=== PATIENT | female | born 1985 | race Caucasian/White ===

== ENCOUNTER 2016-12-30 01:04 | Emergency (ER) | payer OTHER ==
--- NOTE | 2016-12-30 07:23 | ED CLINICAL REPORT ---
Clinical Report - Physicians/Mid Levels [facility] [address] [place] [address] 12/30/2016 1:07 Patient: STAR HIDALGO Time Seen: 01:Dec 30 2016. Arrived- By private vehicle. Historian- patient. CPT: ER phys charges level 4 plus (#[id number]). EKG interpretation (#[id number]). HISTORY OF PRESENT ILLNESS Chief Complaint: PALPITATIONS. This started today Was reading about complications after breast surgery, fell asleep and then awoke later with some anxiety. and is still present. Onset during rest. It is described as a pounding heart beat. Modifying factors. Not worsened by anything. Not relieved by anything. No chest pain, fainting episodes or dizziness. She has had chest soreness (post-op). ( Breast augmentation 2 days ago.). Treatment DIETITIAN HELPER: (none). Similar symptoms previously: As bad. Diagnosis: panic attack. Recent medical care: Not recently seen/assessed. REVIEW OF SYSTEMS No fever, chills, cough, orthopnea or calf pain. No enlarged lymph nodes, sore throat, blurred vision, nausea or abdominal pain. No black stools, difficulty with urination, skin rash, depression or vomiting. No diarrhea or bloody stools. All systems otherwise negative, except as recorded above. PAST HISTORY Uses an intrauterine device. Asthma. Medications: Ibuprofen Oral. Co Q-10 Oral. Stool Softener Oral. Arnica [place] Oral. Aleve Oral. Percocet Oral. Allergies: No Known Drug Allergy. SOCIAL HISTORY Never smoker. No alcohol use or drug use. ADDITIONAL NOTES The nursing notes have been reviewed. PHYSICAL EXAM Vital Signs: 12/30/2016 01:12 BP: 112/72. HR: 150. RR: 20. O2 saturation: 100%. Temp: 98 F. Pain level now: 0/10. Appearance: Alert. No acute distress. Anxious. Eyes: Eyes normal inspection. ENT: Pharynx normal. Neck: Normal inspection. CVS: Normal heart rate and rhythm. Heart sounds normal. Pulses normal. Not tachycardic. Respiratory: No respiratory distress. Breath sounds normal. Chest nontender. Abdomen: Soft and nontender. Back: Normal external inspection. Skin: Skin warm. Normal skin color. No rash. Extremities: Extremities exhibit normal ROM. No lower extremity edema. Neuro: Oriented X 3. No motor deficit. No sensory deficit. LABS, X-RAYS, AND EKG EKG: Rate: 162. Narrow-complex tachycardia. Normal QRS complex. Normal axis. Non-specific ST segment / T wave abnormalities. Prior EKG unavailable. The study has been interpreted contemporaneously. The study has been independently viewed by me. The EKG appears to be a good tracing. Laboratory Tests: CBC w Diff: (HARRY: 12/30/2016 01:20) ( MsgRcvd 12/30/2016 01:50) Final results Test Result Flag Units (Reference) WHITE BLOOD COUNT 7.7 K/uL (4.5-11.5) RED BLOOD COUNT 3.78 L M/uL (4.00-5.20) HEMOGLOBIN 11.6 L gm/dL (12.0-16.0) HEMATOCRIT 34.0 L % (36.0-46.0) MEAN CELL VOLUME 90 fL (80-100) MEAN CORPUSCULAR HGB 31 pg (26-34) MEAN CORPUSCULAR HGB CONC 34 g/dL (31-37) RED CELL DISTRIBUTION WIDTH 12.1 % (11.6-14.8) PLATELET COUNT 250 K/uL (150-400) NEUTROPHIL % 48.1 L % (50-75) LYMPH % 39.3 % (25-40) MONO % 9.0 % (3-14) EOSINOPHIL % 3.3 % (0-4) BASOPHIL % 0.3 % (0-2) CMP: (HARRY: 12/30/2016 01:20) ( MsgRcvd 12/30/2016 02:02) Final results Test Result Flag Units (Reference) GLUCOSE 113 H mg/dL (70-110) BUN 9 mg/dL (7-18) CREATININE 0.7 mg/dL (0.6-1.3) Estimated GFR >60 mL/min Estimated GFR- >60 mL/min Note: Persistent reduction over 3 months in eGFR<60 mL/min/1.73 m2 defines CKD. Patients with eGFR values>=60 mL/min/1.73 m2 may also have CKD if evidence ofpersistent proteinuria. Additional information may be foundat www.kidney.org. SODIUM 141 mmol/L (136-145) POTASSIUM 3.0 L mmol/L (3.5-5.1) CHLORIDE 105 mmol/L (98-107) CARBON DIOXIDE 26 mmol/L (21-32) CALCIUM 8.7 mg/dL (8.5-10.1) TOTAL PROTEIN 7.5 g/dL (6.4-8.2) ALBUMIN 4.0 g/dL (3.3-5.0) BILIRUBIN, TOTAL 0.5 mg/dL (0.0-1.0) ALKALINE PHOSPHATASE 90 U/L (46-116) AST (SGOT) 29 U/L (15-37) ALT (SGPT) 53 U/L (12-78) . PROGRESS AND PROCEDURES Course of Care: Pt resting as I walked into the room and noted HR of 172. Narrow complex tachycardia. Pt does not have palpitations at the time. NO other symptoms. Pt having paroxysmal runs of tachycardia. 07:23 /. No more spells of tachycardia. Repeat exam shows no rub or murmur. Pt calm and in no distress. Will start metoprolol and have PCP follow up this week. Patient/family counseled. Disposition: Discharged. Condition: stable and improved. CLINICAL IMPRESSION Anxiety reaction. Narrow complex tachycardia post -op status. INSTRUCTIONS No strenuous activity. Avoid stimulants (such as cigarettes, coffee, cold medicines, sinus medicines, street drugs). Warnings: Further evaluation is necessary. GENERAL WARNINGS: Return or contact your physician immediately if your condition worsens or changes unexpectedly, if not improving as expected, or if other problems arise. Your Current Medications: STOP TAKING THE FOLLOWING MEDICATIONS: Arnica [place] Oral. CONTINUE TAKING THE FOLLOWING MEDICATIONS: Aleve Oral. Co Q-10 Oral. Ibuprofen Oral. Percocet Oral. Stool Softener Oral. Prescription Medications: Metoprolol 50 mg: take 1 orally every day. Dispense fifteen (15). No refills. Follow-up: Follow up with your doctor in five days. Call for an appointment. Understanding of the discharge instructions verbalized by patient. (Electronically signed by Johnny Garcia MD 01/02/2017 22:14)
--- NOTE | 2016-12-30 07:23 | ED ORDER SUMMARY ---
..... Patient: STAR HIDALGO OrderSheet [facility] VisitID: [id number] [place] [address] 31y, F Registration Date/Time: 12/30/2016 ORDER SHEET Weight: 58.9 kg (stated) Allergies: No Known Drug Allergy GENERAL ORDERS: CBC w Diff Urgent (:12/30/2016 César PULIDO) (1:31 HSoule) CMP Urgent (:12/30/2016 César PULIDO) (1:31 HSoule) Tier Lift Truck Operator (Continuous) (:12/30/2016 César PULIDO) (1:31 HSoule) Pulse oximeter (:12/30/2016 César PULIDO) (1:31 HSoule) EKG - ER Stat (:12/30/2016 César PULIDO) (1:31 HSoule) TSH Urgent (04:12/30/2016 César PULIDO) (4:12 AMcQuoid ER Tech1) CRP Urgent (04:12/30/2016 César PULIDO) (4:12 AMcQuoid ER Tech1) UA-Culture if indicated Urgent (04:51 12/30/2016 César PULIDO) (5:17 AMcQuoid ER Tech1) Urine Drug Screen Urgent (04:12/30/2016 César PULIDO) (5:17 AMcQuoid ER Tech1) MEDICATION ORDERS: KCl PO 20 meq (NOW) (04:20 12/30/2016 César PULIDO) (Ack 4:31 HSoule) (4:38 HSoule) Metoprolol PO 50 mg (NOW) (05:25 12/30/2016 César PULIDO) (Ack 5:33 HSoule) (5:41 HSoule) IV FLUIDS: Ativan IV 0.5 mg (NOW) (:12/30/2016 César PULIDO) (Ack 1:31 HSoule) (1:42 HSoule) IV Saline Lock (:12/30/2016 César PULIDO) (1:42 HSoule) IV NS : initial bolus 1000 mL (1000 mL/hr), then none - for X1 (NOW); Routine (01:55 12/30/2016 César PULIDO) (2:00 HSoule) Ativan IV 0.5 mg (NOW) (01:56 12/30/2016 César PULIDO) (2:01 HSoule) Metoprolol IV 2.5 mg (NOW) (03:48 12/30/2016 César PULIDO) (Ack 3:51 HSoule) (3:59 HSoule) ORDER SHEET NOTES: [Electronically signed by Dianne Leyva R.N. (08:06 12/30/2016)] [Electronically signed by Johnny Garcia MD (22:14 01/02/2017)] [Electronically locked/signed by Dianne Leyva R.N. (08:06 12/30/2016)]
--- NOTE | 2016-12-30 07:23 | ED NURSING NOTES ---
Clinical Report - Nurses [facility] [address] [place] [address] 12/30/2016 1:07 Patient: STAR HIDALGO TRIAGE Triage time 01:Dec 30 2016. Acuity: LEVEL 3. Chief Complaint: (SOB, Rapid heart rate). SEPSIS SCREEN: Sepsis Screen: negative. Negative (no infection suspected/documented). Heart rate greater than 90. MEGHAN COMA SCORE: [place] Coma Scale: 15- eyes open spontaneously (4); best verbal response- oriented x 4 (5); best motor response- obeys commands (6). --01:21 Starla Cole 01:12 12/30/16. BP: 112/72. HR: 150. RR: 20. O2 saturation: 100% on room air. Temp: 98 F (oral). Pain level now: 0/10. --01:21 Starla Cole. Weight: 58.9 kg stated. Height/Length: 63 inches Per Patient. BMI: 23. --01:16 Starla Cole. Medications Percocet Oral. --01:18 Starla Cole Aleve Oral. --01:18 Maddie Coleh Arnica [place] Oral. --01:18 Starla Cole Stool Softener Oral. --01:18 Starla Cole Co Q-10 Oral. --01:18 Starla Cole Ibuprofen Oral. --01:18 DouglasSreekanthStarla. Allergies No Known Drug Allergy. --01:19 Starla Cole. History Arrived by private vehicle. Historian: patient. Accompanied by family. Primary physician (jose miguel louis). This started just prior to arrival. ( Patient has surgery on her breasts on . She states she woke from sleep tonight with shortness of breath, rapid heart rate, and felt abnormal. Patient denies any drainage from incision. Patient denies history of blood clot but states her mother and other family members have had blood clots. She reports history of anxiety. She reports history of anxiety.). PAST MEDICAL HX: Immunizations: up-to-date. Uses an intrauterine device. SOCIAL HX: Never smoker. No alcohol use or drug use. No infectious disease exposure. ABUSE ASSESSMENT: No report of abuse. FALL RISK ASSESSMENT: Fall risk assessment completed. No fall risk identified. NUTRITIONAL RISK ASSESSMENT: The nutritional risk assessment revealed no deficiencies. FUNCTIONAL ASSESSMENT: Functional assessment: no impairments noted. LEARNING NEEDS ASSESSMENT: The learning needs assessment revealed no barriers. SKIN INTEGRITY ASSESSMENT: Skin integrity risk assessment completed. No skin integrity risk identified. --: Starla Cole. PROBLEMS: Asthma. --: Starla Cole. ADDITIONAL SURGERIES: Breast Augmentation. --: Starla Cole. Interventions ID band on patient. To treatment room. --: Starla Cole. PHYSICAL ASSESSMENT Ambulatory to room. Patient gowned. GENERAL / NEURO / PSYCH: Alert. Oriented X 4. Appears anxious. HEENT: No facial asymmetry noted. Mucous membranes are pink. RESPIRATORY: Respirations not labored. Breath sounds within normal limits. CVS: Cardiac rhythm: sinus tachycardia; (160). GI / : Abdomen soft and nontender. SKIN: Skin is warm and dry. Normal skin turgor. --: Starla Cole. NURSING PROGRESS NOTES :12/30/16. application packaging consultant, pulse oximeter and NIBP monitor placed on patient; monitor alarms on. Patient gowned. Warming measures: blanket applied. Reassurance given to the patient. Two patient identifiers checked. Call light placed in reach. Side rails up x 1. Bed placed in lowest position. Brakes of bed on. Patient ready for evaluation- chart flagged and ED physician notified. --: Starla Cole 01:12/30/2016 Site #1 started via IV in the left antecubital space with an 20g angiocath; one attempt. Blood drawn: rainbow set. Labeled in the presence of the patient and sent to the lab. Saline lock flushed with 10 mL saline. --: Starla Cole Checked patient name and birthdate: patient confirmed. Blood samples drawn from the left antecubital space peripheral IV site with Vacutainer by nurse ; labeled in presence of the patient and sent to lab: rainbow set. Additional blood sent to lab. Line flushed with 10 mL normal saline post blood draw. --01:23 Starla Cole EKG time: (Dec 30 2016). EKG was performed by a nurse and shown to the ED physician. --01:23 Starla Cole ( Provider notified of vitals and called to bedside). --01:24 Starla Cole 01:42 12/30/2016 Ativan (LORazepam) IVP 0.5 mg given over 1 minute(s) via site #1. Allergies verified, confirmed 5 rights and sedative warning given to the patient. IV patency established. IV site checked: no pain, redness, or swelling. IV flushed thoroughly pre- and post-medication administration. IVP given by RN. --01:42 Starla Cole 01:48 12/30/16. HR: 118. RR: 20. O2 saturation: 100% on room air. --01:51 Starla Cole 01:45 12/30/2016 Started bag #1 1000 mL IV Fluids IV NS (Saline); at 1000 mL/hr over 1 hour(s) via site #1. Allergies verified and confirmed 5 rights. IV patency established. IV site checked: no pain, redness, or swelling. IV flushed thoroughly pre- and post-medication administration. --02:00 Starla Cole 02:01 12/30/2016 Ativan (LORazepam) IVP 0.5 mg given over 1 minute(s) via site #1. Allergies verified, confirmed 5 rights and sedative warning given to the patient. IV patency established. IV site checked: no pain, redness, or swelling. IV flushed thoroughly pre- and post-medication administration. IVP given by RN. --02: Starla Cole Patient ID band checked for patient name and birthdate: patient confirmed. Instructions provided to collect clean catch urine and patient verbalized understanding. Clean catch urine collected with return of yellow-colored clear urine; sample sent to lab for urinalysis and drug screen. Specimen labeled in the presence of the patient. ( Patient assisted up to restroom. Patient anxious. She reports she feels weird still.). --02:02 Starla Cole 02:09 12/30/16. BP: 125/84. HR: 118. RR: 20. O2 saturation: 100% on room air. --02:09 Starla Cloe ( patient assisted up to restroom). --02:33 Starla Cole ( lights dimmed, warm blankets applied. Patient has no complaints at this time). --02:39 Starla Cole 03:12 12/30/16. HR: 115. RR: 20. O2 saturation: 98%. --03:12 Starla Cole The patient reports no complaints and she is calm and resting quietly. --03:13 Starla Cole 02:40 12/30/2016 IV Fluids IV NS Discontinued: bag #1 completed. Total amount infused: 1000 mL. IV patency established. IV site checked: no pain, redness, or swelling. IV flushed thoroughly. --03:59 Starla Cole 03:50 12/30/16. --04:00 Starla Cole 03:54 12/30/2016 Metoprolol (Metoprolol Tartrate) IVP 2.5 mg given over 4 minute(s) via site #1. Allergies verified and confirmed 5 rights. IV patency established. IV site checked: no pain, redness, or swelling. IV flushed thoroughly pre- and post-medication administration. IVP given by RN. --03:59 Starla Cole 03:50 12/30/16. BP: 120/78. HR: 125. RR: 20. O2 saturation: 98% on room air. --04:00 Starla Cole 04:00 12/30/16. BP: 122/70. HR: 105. RR: 20. O2 saturation: 98% on room air. Additional comments: Vitals signs after medication administration. . --04:01 Starla Cole 04:38 12/30/2016 KCL (Potassium Chloride ER) PO Tablets 20 meq given. Allergies verified and confirmed 5 rights. --04:38 Starla Cole 04:39 12/30/16. BP: 124/70. HR: 112. RR: 20. O2 saturation: 100% on room air. --04:40 Starla Cole ( Patient given PO food and fluids. Patient resting quietly and has no complaints.). --04:40 Starla Cole 05:41 12/30/2016 Metoprolol PO Tablets 50 mg given. Allergies verified and confirmed 5 rights. --05:41 Starla Cole 05:42 12/30/16. BP: 115/60. HR: 108. RR: 20. O2 saturation: 100% on room air. Pain level now: 0/10. --05:42 Starla Cole 06:07 12/30/16. BP: 125/60. HR: 111. RR: 20. O2 saturation: 100% on room air. --06:07 Starla Cole Care transferred and report given (Leidy SINGH). --07:20 Starla Cole 07:48 12/30/16. BP: 106/68. HR: 88. RR: 18. O2 saturation: 100%. Temp: 97.2 F. --07:49 Steffany Caballero. DISPOSITION / DISCHARGE 08:12/30/2016 Site #1 removed upon discharge. Catheter intact. Manual pressure and bandaid applied. --08:05 Dianne Leyva R.N. 08:04 12/30/16. BP: 106/68. HR: 94. RR: 16. O2 saturation: 100%. Temp: 98.0 F. Pain level now 0/10. --08:05 Dianne Leyva R.N. Condition at departure: stable. No learning barriers present. Discharge instructions provided and reviewed with the patient. Reviewed medication(s) side effects, precautions, dosing and course information. Prescription(s) given to the patient. Reviewed referral to family practice for followup. Patient verbalized understanding. Written instructions provided in [place]. The patient was discharged home and accompanied by knowledge architect. She left the Emergency Department ambulatory and via private vehicle. Rock Splitter driving. Medication list reviewed and validated. --08:06 Dianne Leyva R.N. Departure time: 08:06. --08:06 Dianne Leyva R.N. Locked/Released at 12/30/2016 8:06 by Dianne Leyva R.N.
--- NOTE | 2016-12-30 07:23 | ED ORDER SUMMARY ---
..... Patient: STAR HIDALGO OrderSheet [facility] VisitID: [id number] [place] [address] 31y, F Registration Date/Time: 12/30/2016 ORDER SHEET Weight: 58.9 kg (stated) Allergies: No Known Drug Allergy GENERAL ORDERS: CBC w Diff Urgent (:12/30/2016 César PULIDO) (1:31 HSoule) CMP Urgent (:12/30/2016 César PULIDO) (1:31 HSoule) Filer Repairer (Continuous) (:12/30/2016 César PULIDO) (1:31 HSoule) Pulse oximeter (:12/30/2016 César PULIDO) (1:31 HSoule) EKG - ER Stat (:12/30/2016 César PULIDO) (1:31 HSoule) TSH Urgent (04:12/30/2016 César PULIDO) (4:12 AMcQuoid ER Tech1) CRP Urgent (04:12/30/2016 César PULIDO) (4:12 AMcQuoid ER Tech1) UA-Culture if indicated Urgent (04:51 12/30/2016 César PULIDO) (5:17 AMcQuoid ER Tech1) Urine Drug Screen Urgent (04:12/30/2016 César PULIDO) (5:17 AMcQuoid ER Tech1) MEDICATION ORDERS: KCl PO 20 meq (NOW) (04:20 12/30/2016 César PULIDO) (Ack 4:31 HSoule) (4:38 HSoule) Metoprolol PO 50 mg (NOW) (05:25 12/30/2016 César PULIDO) (Ack 5:33 HSoule) (5:41 HSoule) IV FLUIDS: Ativan IV 0.5 mg (NOW) (:12/30/2016 César PULIDO) (Ack 1:31 HSoule) (1:42 HSoule) IV Saline Lock (:12/30/2016 César PULIDO) (1:42 HSoule) IV NS : initial bolus 1000 mL (1000 mL/hr), then none - for X1 (NOW); Routine (01:55 12/30/2016 César PULIDO) (2:00 HSoule) Ativan IV 0.5 mg (NOW) (01:56 12/30/2016 César PULIDO) (2:01 HSoule) Metoprolol IV 2.5 mg (NOW) (03:48 12/30/2016 César PULIDO) (Ack 3:51 HSoule) (3:59 HSoule) ORDER SHEET NOTES: [Electronically signed by Dianne Leyva R.N. (08:06 12/30/2016)] [Electronically signed by Johnny Garcia MD (22:14 01/02/2017)] [Electronically locked/signed by Dianne Leyva R.N. (08:06 12/30/2016)]
--- NOTE | 2016-12-30 07:23 | ED CLINICAL REPORT ---
Clinical Report - Physicians/Mid Levels [facility] [address] [place] [address] 12/30/2016 1:07 Patient: STAR HIDALGO Time Seen: 01:Dec 30 2016. Arrived- By private vehicle. Historian- patient. CPT: ER phys charges level 4 plus (#[id number]). EKG interpretation (#[id number]). HISTORY OF PRESENT ILLNESS Chief Complaint: PALPITATIONS. This started today Was reading about complications after breast surgery, fell asleep and then awoke later with some anxiety. and is still present. Onset during rest. It is described as a pounding heart beat. Modifying factors. Not worsened by anything. Not relieved by anything. No chest pain, fainting episodes or dizziness. She has had chest soreness (post-op). ( Breast augmentation 2 days ago.). Treatment CARRIAGE FEEDER: (none). Similar symptoms previously: As bad. Diagnosis: panic attack. Recent medical care: Not recently seen/assessed. REVIEW OF SYSTEMS No fever, chills, cough, orthopnea or calf pain. No enlarged lymph nodes, sore throat, blurred vision, nausea or abdominal pain. No black stools, difficulty with urination, skin rash, depression or vomiting. No diarrhea or bloody stools. All systems otherwise negative, except as recorded above. PAST HISTORY Uses an intrauterine device. Asthma. Medications: Ibuprofen Oral. Co Q-10 Oral. Stool Softener Oral. Arnica [place] Oral. Aleve Oral. Percocet Oral. Allergies: No Known Drug Allergy. SOCIAL HISTORY Never smoker. No alcohol use or drug use. ADDITIONAL NOTES The nursing notes have been reviewed. PHYSICAL EXAM Vital Signs: 12/30/2016 01:12 BP: 112/72. HR: 150. RR: 20. O2 saturation: 100%. Temp: 98 F. Pain level now: 0/10. Appearance: Alert. No acute distress. Anxious. Eyes: Eyes normal inspection. ENT: Pharynx normal. Neck: Normal inspection. CVS: Normal heart rate and rhythm. Heart sounds normal. Pulses normal. Not tachycardic. Respiratory: No respiratory distress. Breath sounds normal. Chest nontender. Abdomen: Soft and nontender. Back: Normal external inspection. Skin: Skin warm. Normal skin color. No rash. Extremities: Extremities exhibit normal ROM. No lower extremity edema. Neuro: Oriented X 3. No motor deficit. No sensory deficit. LABS, X-RAYS, AND EKG EKG: Rate: 162. Narrow-complex tachycardia. Normal QRS complex. Normal axis. Non-specific ST segment / T wave abnormalities. Prior EKG unavailable. The study has been interpreted contemporaneously. The study has been independently viewed by me. The EKG appears to be a good tracing. Laboratory Tests: CBC w Diff: (HARRY: 12/30/2016 01:20) ( MsgRcvd 12/30/2016 01:50) Final results Test Result Flag Units (Reference) WHITE BLOOD COUNT 7.7 K/uL (4.5-11.5) RED BLOOD COUNT 3.78 L M/uL (4.00-5.20) HEMOGLOBIN 11.6 L gm/dL (12.0-16.0) HEMATOCRIT 34.0 L % (36.0-46.0) MEAN CELL VOLUME 90 fL (80-100) MEAN CORPUSCULAR HGB 31 pg (26-34) MEAN CORPUSCULAR HGB CONC 34 g/dL (31-37) RED CELL DISTRIBUTION WIDTH 12.1 % (11.6-14.8) PLATELET COUNT 250 K/uL (150-400) NEUTROPHIL % 48.1 L % (50-75) LYMPH % 39.3 % (25-40) MONO % 9.0 % (3-14) EOSINOPHIL % 3.3 % (0-4) BASOPHIL % 0.3 % (0-2) CMP: (HARRY: 12/30/2016 01:20) ( MsgRcvd 12/30/2016 02:02) Final results Test Result Flag Units (Reference) GLUCOSE 113 H mg/dL (70-110) BUN 9 mg/dL (7-18) CREATININE 0.7 mg/dL (0.6-1.3) Estimated GFR >60 mL/min Estimated GFR- >60 mL/min Note: Persistent reduction over 3 months in eGFR<60 mL/min/1.73 m2 defines CKD. Patients with eGFR values>=60 mL/min/1.73 m2 may also have CKD if evidence ofpersistent proteinuria. Additional information may be foundat www.kidney.org. SODIUM 141 mmol/L (136-145) POTASSIUM 3.0 L mmol/L (3.5-5.1) CHLORIDE 105 mmol/L (98-107) CARBON DIOXIDE 26 mmol/L (21-32) CALCIUM 8.7 mg/dL (8.5-10.1) TOTAL PROTEIN 7.5 g/dL (6.4-8.2) ALBUMIN 4.0 g/dL (3.3-5.0) BILIRUBIN, TOTAL 0.5 mg/dL (0.0-1.0) ALKALINE PHOSPHATASE 90 U/L (46-116) AST (SGOT) 29 U/L (15-37) ALT (SGPT) 53 U/L (12-78) . PROGRESS AND PROCEDURES Course of Care: Pt resting as I walked into the room and noted HR of 172. Narrow complex tachycardia. Pt does not have palpitations at the time. NO other symptoms. Pt having paroxysmal runs of tachycardia. 07:23 /. No more spells of tachycardia. Repeat exam shows no rub or murmur. Pt calm and in no distress. Will start metoprolol and have PCP follow up this week. Patient/family counseled. Disposition: Discharged. Condition: stable and improved. CLINICAL IMPRESSION Anxiety reaction. Narrow complex tachycardia post -op status. INSTRUCTIONS No strenuous activity. Avoid stimulants (such as cigarettes, coffee, cold medicines, sinus medicines, street drugs). Warnings: Further evaluation is necessary. GENERAL WARNINGS: Return or contact your physician immediately if your condition worsens or changes unexpectedly, if not improving as expected, or if other problems arise. Your Current Medications: STOP TAKING THE FOLLOWING MEDICATIONS: Arn[place] Oral. CONTINUE TAKING THE FOLLOWING MEDICATIONS: Aleve Oral. Co Q-10 Oral. Ibuprofen Oral. Percocet Oral. Stool Softener Oral. Prescription Medications: Metoprolol 50 mg: take 1 orally every day. Dispense fifteen (15). No refills. Follow-up: Follow up with your doctor in five days. Call for an appointment. Understanding of the discharge instructions verbalized by patient. (Electronically signed by Johnny Garcia MD 01/02/2017 22:14)
--- NOTE | 2017-01-02 22:14 | ED DISCHARGE INSTRUCTIONS ---
Patient: STAR HIDALGO General Instructions [facility] VisitID: [id number] [place] [address] 31y, F Registration Date/Time: 12/30/2016 Anxiety reaction. Narrow complex tachycardia post -op status. INSTRUCTIONS No strenuous activity. Avoid stimulants (such as cigarettes, coffee, cold medicines, sinus medicines, street drugs). Warnings: Further evaluation is necessary. GENERAL WARNINGS: Return or contact your physician immediately if your condition worsens or changes unexpectedly, if not improving as expected, or if other problems arise. Your Current Medications: STOP TAKING THE FOLLOWING MEDICATIONS: Arnica [place] Oral. CONTINUE TAKING THE FOLLOWING MEDICATIONS: Aleve Oral. Co Q-10 Oral. Ibuprofen Oral. Percocet Oral. Stool Softener Oral. Prescription Medications: Metoprolol 50 mg: take 1 orally every day. Dispense fifteen (15). No refills. Follow-up: Follow up with your doctor in five days. Call for an appointment. Understanding of the discharge instructions verbalized by patient. ADDITIONAL INFORMATION Stress Reaction Anxiety is the feeling we all get when we think something bad might happen. It is a normal response to stress and usually causes only a mild reaction. When anxiety becomes more severe, emotions may interfere with daily life. In some cases, you may not even be aware of what it is youre anxious about! During an anxiety reaction, you may feel like you are helpless, nervous, depressed or irritable. Your body may show signs of anxiety in many ways. You may experience dry mouth, shakiness, dizziness, weakness, trouble breathing, chest pressure, headache, nausea, diarrhea, tiredness, inability to sleep or sexual problems. Home Care: 1) Try to locate the sources of stress in your life. They may not be obvious! These may include: -- Daily hassles of life which pile up (traffic jams, missed appointments, car troubles, etc.) -- Major life changes, both good (new baby, job promotion) and bad (loss of job, loss of loved one) -- Overload: feeling that you have too many responsibilities and can't take care of all of them at once -- Feeling helpless, feeling that your problems are beyond what youre able to solve 2) Notice how your body reacts to stress. Learn to listen to your body signals. This will help you take action before the stress becomes severe. 3) When you can, do something about the source of your stress. (Avoid hassles, limit the amount of change that happens in your life at one time and take a break when you feel overloaded). 4) Unfortunately, many stressful situations cannot be avoided. It is necessary to learn HOW TO MANAGE STRESS better. There are many proven methods that will reduce your anxiety. These include simple things like exercise, good nutrition and adequate rest. Also, there are certain techniques that are helpful: relaxation and breathing exercises, visualization, biofeedback and meditation. For more information about this, consult your doctor or go to a local bookstore and review the many books and tapes available on this subject. Follow Up If you feel that your anxiety is not responding to self-help measures, contact your doctor or make an appointment with a counselor. Get Prompt Medical Attention if any of the following occur: -- Your symptoms get worse -- Chest pain or trouble breathing -- Severe headache not relieved by rest and mild pain reliever -- Rapid or irregular heartbeat, fainting Metoprolol Tartrate Oral tablet What is this medicine? METOPROLOL (me TOE proe lole) is a beta-socrates. Beta-blockers reduce the workload on the heart and help it to beat more regularly. This medicine is used to treat high blood pressure and to prevent chest pain. It is also used to after a heart attack and to prevent an additional heart attack from occurring. How should I use this medicine? Take this medicine by mouth with a drink of water. Follow the directions on the prescription label. Take this medicine immediately after meals. Take your doses at regular intervals. Do not take more medicine than directed. Do not stop taking this medicine suddenly. This could lead to serious heart-related effects. Talk to your early childhood director regarding the use of this medicine in children. Special care may be needed. What side effects may I notice from receiving this medicine? Side effects that you should report to your doctor or health animal care specialist as soon as possible: allergic reactions like skin rash, itching or hives cold or numb hands or feet depression difficulty breathing faint fever with sore throat irregular heartbeat, chest pain rapid weight gain swollen legs or ankles Side effects that usually do not require medical attention (report to your doctor or health animal care specialist if they continue or are bothersome): anxiety or nervousness change in sex drive or performance dry skin headache nightmares or trouble sleeping short term memory loss stomach upset or diarrhea unusually tired What may interact with this medicine? Do not take this medicine with any of the following medications: sotalol This medicine may also interact with the following medications: clonidine digoxin dobutamine epinephrine isoproterenol medicine to control heart rhythm like quinidine, propafenone medicine for depression like monoamine oxidase (MAO) inhibitors, fluoxetine, and paroxetine medicine for high blood pressure like calcium channel blockers reserpine What if I miss a dose? If you miss a dose, take it as soon as you can. If it is almost time for your next dose, take only that dose. Do not take double or extra doses. Where should I keep my medicine? Keep out of the reach of children. Store at room temperature between 15 and 30 degrees C (59 and 86 degrees F). Throw away any unused medicine after the expiration date. What should I tell my health care provider before I take this medicine? They need to know if you have any of these conditions: diabetes heart or vessel disease like slow heart rate, worsening heart failure, heart block, sick sinus syndrome or Raynaud's disease kidney disease liver disease lung or breathing disease, like asthma or emphysema pheochromocytoma thyroid disease an unusual or allergic reaction to metoprolol, other beta-blockers, medicines, foods, dyes, or preservatives or trying to get breast-feeding What should I watch for while using this medicine? Visit your doctor or health animal care specialist for regular check ups. Contact your doctor right away if your symptoms worsen. Check your blood pressure and pulse rate regularly. Ask your health animal care specialist what your blood pressure and pulse rate should be, and when you should contact them. You may get drowsy or dizzy. Do not drive, use machinery, or do anything that needs mental alertness until you know how this medicine affects you. Do not sit or stand up quickly, especially if you are an older patient. This reduces the risk of dizzy or fainting spells. Contact your doctor if these symptoms continue. Alcohol may interfere with the effect of this medicine. Avoid alcoholic drinks. You have been given the following additional information: Anxiety Reaction Metoprolol Tartrate Oral tablet No strenuous activity. (Electronically signed by Johnny Garcia MD 01/02/2017 22:14)
--- NOTE | 2017-01-02 22:14 | ED MED RECONCILIATION SUMMARY ---
Patient: STAR HIDALGO Medication Reconciliation Report [facility] VisitID: [id number] [place] [address] 31y, F Registration Date/Time: 12/30/2016 Weight: 58.9 kg Height/Length: 63 in. BMI: 23.0 ALLERGIES: No Known Drug Allergy The patient's Home Medications are listed below: STOP TAKING THE FOLLOWING MEDICATIONS: Arnica [place] Oral CONTINUE TAKING THE FOLLOWING MEDICATIONS: Aleve Oral Co Q-10 Oral Ibuprofen Oral Percocet Oral Stool Softener Oral The source(s) of the original Home Medication information: Not obtained. The following Medications were given to the patient in the Emergency Department: Ativan [IVP] IVP 0.5 mg, administered: 12/30/2016 1:42:00 AM IV NS IV Fluids bolus 0, then 1000 mL/hr, administered: 12/30/2016 1:45:00 AM Ativan [IVP] IVP 0.5 mg, administered: 12/30/2016 2:01:00 AM Metoprolol [IVP] IVP 2.5 mg, administered: 12/30/2016 3:54:00 AM KCL [PO] PO 20 meq, administered: 12/30/2016 4:38:00 AM Metoprolol [PO] PO 50 mg, administered: 12/30/2016 5:41:00 AM The following Medications were prescribed to the patient: Metoprolol 50 mg: take 1 orally every day. Dispense fifteen (15). No refills. -- Johnny Garcia MD
--- NOTE | 2017-01-02 22:14 | ED DISCHARGE INSTRUCTIONS ---
Patient: STAR HIDALGO General Instructions [facility] VisitID: [id number] [place] [address] 31y, F Registration Date/Time: 12/30/2016 Anxiety reaction. Narrow complex tachycardia post -op status. INSTRUCTIONS No strenuous activity. Avoid stimulants (such as cigarettes, coffee, cold medicines, sinus medicines, street drugs). Warnings: Further evaluation is necessary. GENERAL WARNINGS: Return or contact your physician immediately if your condition worsens or changes unexpectedly, if not improving as expected, or if other problems arise. Your Current Medications: STOP TAKING THE FOLLOWING MEDICATIONS: Arnica [place] Oral. CONTINUE TAKING THE FOLLOWING MEDICATIONS: Aleve Oral. Co Q-10 Oral. Ibuprofen Oral. Percocet Oral. Stool Softener Oral. Prescription Medications: Metoprolol 50 mg: take 1 orally every day. Dispense fifteen (15). No refills. Follow-up: Follow up with your doctor in five days. Call for an appointment. Understanding of the discharge instructions verbalized by patient. ADDITIONAL INFORMATION Stress Reaction Anxiety is the feeling we all get when we think something bad might happen. It is a normal response to stress and usually causes only a mild reaction. When anxiety becomes more severe, emotions may interfere with daily life. In some cases, you may not even be aware of what it is youre anxious about! During an anxiety reaction, you may feel like you are helpless, nervous, depressed or irritable. Your body may show signs of anxiety in many ways. You may experience dry mouth, shakiness, dizziness, weakness, trouble breathing, chest pressure, headache, nausea, diarrhea, tiredness, inability to sleep or sexual problems. Home Care: 1) Try to locate the sources of stress in your life. They may not be obvious! These may include: -- Daily hassles of life which pile up (traffic jams, missed appointments, car troubles, etc.) -- Major life changes, both good (new baby, job promotion) and bad (loss of job, loss of loved one) -- Overload: feeling that you have too many responsibilities and can't take care of all of them at once -- Feeling helpless, feeling that your problems are beyond what youre able to solve 2) Notice how your body reacts to stress. Learn to listen to your body signals. This will help you take action before the stress becomes severe. 3) When you can, do something about the source of your stress. (Avoid hassles, limit the amount of change that happens in your life at one time and take a break when you feel overloaded). 4) Unfortunately, many stressful situations cannot be avoided. It is necessary to learn HOW TO MANAGE STRESS better. There are many proven methods that will reduce your anxiety. These include simple things like exercise, good nutrition and adequate rest. Also, there are certain techniques that are helpful: relaxation and breathing exercises, visualization, biofeedback and meditation. For more information about this, consult your doctor or go to a local bookstore and review the many books and tapes available on this subject. Follow Up If you feel that your anxiety is not responding to self-help measures, contact your doctor or make an appointment with a counselor. Get Prompt Medical Attention if any of the following occur: -- Your symptoms get worse -- Chest pain or trouble breathing -- Severe headache not relieved by rest and mild pain reliever -- Rapid or irregular heartbeat, fainting Metoprolol Tartrate Oral tablet What is this medicine? METOPROLOL (me TOE proe lole) is a beta-socrates. Beta-blockers reduce the workload on the heart and help it to beat more regularly. This medicine is used to treat high blood pressure and to prevent chest pain. It is also used to after a heart attack and to prevent an additional heart attack from occurring. How should I use this medicine? Take this medicine by mouth with a drink of water. Follow the directions on the prescription label. Take this medicine immediately after meals. Take your doses at regular intervals. Do not take more medicine than directed. Do not stop taking this medicine suddenly. This could lead to serious heart-related effects. Talk to your resource director regarding the use of this medicine in children. Special care may be needed. What side effects may I notice from receiving this medicine? Side effects that you should report to your doctor or health companion caregiver as soon as possible: allergic reactions like skin rash, itching or hives cold or numb hands or feet depression difficulty breathing faint fever with sore throat irregular heartbeat, chest pain rapid weight gain swollen legs or ankles Side effects that usually do not require medical attention (report to your doctor or health companion caregiver if they continue or are bothersome): anxiety or nervousness change in sex drive or performance dry skin headache nightmares or trouble sleeping short term memory loss stomach upset or diarrhea unusually tired What may interact with this medicine? Do not take this medicine with any of the following medications: sotalol This medicine may also interact with the following medications: clonidine digoxin dobutamine epinephrine isoproterenol medicine to control heart rhythm like quinidine, propafenone medicine for depression like monoamine oxidase (MAO) inhibitors, fluoxetine, and paroxetine medicine for high blood pressure like calcium channel blockers reserpine What if I miss a dose? If you miss a dose, take it as soon as you can. If it is almost time for your next dose, take only that dose. Do not take double or extra doses. Where should I keep my medicine? Keep out of the reach of children. Store at room temperature between 15 and 30 degrees C (59 and 86 degrees F). Throw away any unused medicine after the expiration date. What should I tell my health care provider before I take this medicine? They need to know if you have any of these conditions: diabetes heart or vessel disease like slow heart rate, worsening heart failure, heart block, sick sinus syndrome or Raynaud's disease kidney disease liver disease lung or breathing disease, like asthma or emphysema pheochromocytoma thyroid disease an unusual or allergic reaction to metoprolol, other beta-blockers, medicines, foods, dyes, or preservatives or trying to get breast-feeding What should I watch for while using this medicine? Visit your doctor or health companion caregiver for regular check ups. Contact your doctor right away if your symptoms worsen. Check your blood pressure and pulse rate regularly. Ask your health companion caregiver what your blood pressure and pulse rate should be, and when you should contact them. You may get drowsy or dizzy. Do not drive, use machinery, or do anything that needs mental alertness until you know how this medicine affects you. Do not sit or stand up quickly, especially if you are an older patient. This reduces the risk of dizzy or fainting spells. Contact your doctor if these symptoms continue. Alcohol may interfere with the effect of this medicine. Avoid alcoholic drinks. You have been given the following additional information: Anxiety Reaction Metoprolol Tartrate Oral tablet No strenuous activity. (Electronically signed by Johnny Garcia MD 01/02/2017 22:14)
--- NOTE | 2017-01-02 22:14 | ED MAR SUMMARY ---
..... Medication Administration Record [facility] [address] [place] [address] Patient: STAR HIDALGO Visit ID: [id number] 31y, F Weight: 58.9 kg Height/Length: 63 in BMI: 23 ALLERGIES: No Known Drug Allergy Given 01:42 12/30/2016 Starla Cole, Medication Administered: ATIVAN [IVP] (LORAZEPAM), Dose: 0.5 mg IVP over 1 minute(s), Site: #1 left AC. Medication Ordered: Ativan IV 0.5 mg (NOW). Start 01:45 12/30/2016 Starla Cole,, Stop 02:40 12/30/2016 Starla Cole, Medication Administered: IV NS (SALINE), Dose: IV Fluids over 1 hour(s), Rate: 1000 mL/hr, Dispensed: 1000 mL bag, Site: #1 left AC. Medication Ordered: IV NS : initial bolus 1000 mL (1000 mL/hr), then none - for X1 (NOW); Routine. Given 02:01 12/30/2016 Starla Cole, Medication Administered: ATIVAN [IVP] (LORAZEPAM), Dose: 0.5 mg IVP over 1 minute(s), Site: #1 left AC. Medication Ordered: Ativan IV 0.5 mg (NOW). Given 03:54 12/30/2016 Starla Cole, Medication Administered: METOPROLOL [IVP] (METOPROLOL TARTRATE), Dose: 2.5 mg IVP over 4 minute(s), Site: #1 left AC. Medication Ordered: Metoprolol IV 2.5 mg (NOW). Given 04:38 12/30/2016 Starla Cole, Medication Administered: KCL [PO] (POTASSIUM CHLORIDE ER), Dose: 20 meq Tablets PO. Medication Ordered: KCl PO 20 meq (NOW). Given 05:41 12/30/2016 Starla Cole, Medication Administered: METOPROLOL [PO], Dose: 50 mg Tablets PO. Medication Ordered: Metoprolol PO 50 mg (NOW).
--- NOTE | 2017-01-02 22:14 | ED MED RECONCILIATION SUMMARY ---
Patient: STAR HIDALGO Medication Reconciliation Report [facility] VisitID: [id number] [place] [address] 31y, F Registration Date/Time: 12/30/2016 Weight: 58.9 kg Height/Length: 63 in. BMI: 23.0 ALLERGIES: No Known Drug Allergy The patient's Home Medications are listed below: STOP TAKING THE FOLLOWING MEDICATIONS: Arnica [place] Oral CONTINUE TAKING THE FOLLOWING MEDICATIONS: Aleve Oral Co Q-10 Oral Ibuprofen Oral Percocet Oral Stool Softener Oral The source(s) of the original Home Medication information: Not obtained. The following Medications were given to the patient in the Emergency Department: Ativan [IVP] IVP 0.5 mg, administered: 12/30/2016 1:42:00 AM IV NS IV Fluids bolus 0, then 1000 mL/hr, administered: 12/30/2016 1:45:00 AM Ativan [IVP] IVP 0.5 mg, administered: 12/30/2016 2:01:00 AM Metoprolol [IVP] IVP 2.5 mg, administered: 12/30/2016 3:54:00 AM KCL [PO] PO 20 meq, administered: 12/30/2016 4:38:00 AM Metoprolol [PO] PO 50 mg, administered: 12/30/2016 5:41:00 AM The following Medications were prescribed to the patient: Metoprolol 50 mg: take 1 orally every day. Dispense fifteen (15). No refills. -- Johnny Garcia MD
--- NOTE | 2017-01-02 22:14 | ED MAR SUMMARY ---
..... Medication Administration Record [facility] [address] [place] [address] Patient: STAR HIDALGO Visit ID: [id number] 31y, F Weight: 58.9 kg Height/Length: 63 in BMI: 23 ALLERGIES: No Known Drug Allergy Given 01:42 12/30/2016 Starla Cole, Medication Administered: ATIVAN [IVP] (LORAZEPAM), Dose: 0.5 mg IVP over 1 minute(s), Site: #1 left AC. Medication Ordered: Ativan IV 0.5 mg (NOW). Start 01:45 12/30/2016 Starla Cole,, Stop 02:40 12/30/2016 Starla Cole, Medication Administered: IV NS (SALINE), Dose: IV Fluids over 1 hour(s), Rate: 1000 mL/hr, Dispensed: 1000 mL bag, Site: #1 left AC. Medication Ordered: IV NS : initial bolus 1000 mL (1000 mL/hr), then none - for X1 (NOW); Routine. Given 02:01 12/30/2016 Starla Cole, Medication Administered: ATIVAN [IVP] (LORAZEPAM), Dose: 0.5 mg IVP over 1 minute(s), Site: #1 left AC. Medication Ordered: Ativan IV 0.5 mg (NOW). Given 03:54 12/30/2016 Starla Cole, Medication Administered: METOPROLOL [IVP] (METOPROLOL TARTRATE), Dose: 2.5 mg IVP over 4 minute(s), Site: #1 left AC. Medication Ordered: Metoprolol IV 2.5 mg (NOW). Given 04:38 12/30/2016 Starla Cole, Medication Administered: KCL [PO] (POTASSIUM CHLORIDE ER), Dose: 20 meq Tablets PO. Medication Ordered: KCl PO 20 meq (NOW). Given 05:41 12/30/2016 Starla Cole, Medication Administered: METOPROLOL [PO], Dose: 50 mg Tablets PO. Medication Ordered: Metoprolol PO 50 mg (NOW).
== END 2016-12-30 08:06 | disposition home or self-care (01) ==
LOC: ED SRH 01:04 → EDBD 01:07 → ED SRH 08:06
DX: F41.1 Generalized anxiety disorder (principal); R00.0 Tachycardia, unspecified; Z98.82 Breast implant status; Z79.899 Other long term (current) drug therapy
CPT/HCPCS: 90004; 90100; 91585; 92760; 92761; 92762; 92763; 92764; 92765; 92766; 92767; 93140; 95059

== ENCOUNTER 2017-01-01 16:52 | Outpatient (CLI) | payer OTHER ==
--- NOTE | 2017-01-01 17:46 | DIAGNOSTIC IMAGING REPORT ---
PROCEDURE: XR CHEST 2 VIEW INDICATION: CHEST PAIN TECHNIQUE: PA and lateral views. COMPARISON: None. FINDINGS: Lungs are clear. Heart and mediastinum are normal. Thorax is normal. IMPRESSION: 1. Negative chest.
== END 2017-01-01 23:00 ==
LOC: XR SRH 16:52
DX: R07.9 Chest pain, unspecified (principal)

== ENCOUNTER 2017-01-02 16:53 | Emergency (ER) | payer OTHER ==
--- NOTE | 2017-01-02 19:14 | ED NURSING NOTES ---
Clinical Report - Nurses [place] [address] [place] [address] 01/02/2017 16:52 Patient: STAR HIDALGO TRIAGE Triage time 17:Jan 02 2017. Acuity: LEVEL 4. Chief Complaint: LEFT UPPER EXTREMITY TINGLING. 17:01/02/17. 17:01/02/17. Alert. No acute distress. SEPSIS SCREEN: Sepsis Screen. Negative (no infection suspected/documented). SHAYLEE COMA SCORE: Shaylee Coma Scale: 15- eyes open spontaneously (4); best verbal response- oriented x 4 (5); best motor response- obeys commands (6). --17:24 Ramirez Parikh R.N. 17:01/02/17. BP: 129/92. HR: 98. RR: 18. O2 saturation: 100% on room air. Temp: 97.8 F (oral). Pain level now: 10/19. --17:24 Ramirez Parikh R.N. Weight: 57.6 kg stated. Height/Length: 63 inches Per Patient. BMI: 22.5. --17:21 Ramirez Parikh R.N. Medications Xanax Oral. --17:20 Ramirez Parikh R.N. Beta Liliam. --17:20 Ramirez Parikh R.N. OxyCODONE HCl Oral. --17:21 Ramirez Parkih R.N. Medication/allergy information source: the patient. --17:24 Ramirez Parikh R.N. Allergies No Known Drug Allergy. --17:21 Ramirez Parikh R.N. History Arrived by private vehicle. Primary physician (Kayley). 17:01/02/17. No injury occurred. This occurred (30 min ago). 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 PAST MEDICAL HX: Tetanus status: up-to-date. Immunizations: up-to-date. SOCIAL HX: Never smoker. No alcohol use or drug use. No infectious disease exposure. ABUSE ASSESSMENT: No report of abuse. FALL RISK ASSESSMENT: Fall risk assessment completed. No fall risk identified. NUTRITIONAL RISK ASSESSMENT: The nutritional risk assessment revealed no deficiencies. FUNCTIONAL ASSESSMENT: Functional assessment: no impairments noted. LEARNING NEEDS ASSESSMENT: The learning needs assessment revealed no barriers. SKIN INTEGRITY ASSESSMENT: Skin integrity risk assessment completed. No skin integrity risk identified. --17:24 Ramirez Parikh R.N. PAST MEDICAL HX: Last normal menstrual period now. --17:24 Ramirez Parikh R.N. PROBLEMS: Asthma. --17:21 Ramirez Parikh R.N. ADDITIONAL SURGERIES: Breast Augmentation. --17:21 Ramirez Parikh R.N. Assessment 17:01/02/17. --17:24 Ramirez Parikh R.N. Interventions 17:01/02/17. 17:01/02/17. ID and allergy band on patient. To treatment room. --17:24 Ramirez Parikh R.N. PHYSICAL ASSESSMENT 17:01/02/17. Ambulatory to room. GENERAL / NEURO / PSYCH: Oriented X 4. Alert. Appears in no acute distress. EXTREMITIES: Extremities exhibit normal ROM. Neuro-vascular status intact to the extremity. No upper extremity edema. Skin is non-tender on the extremities. Left hand: (tingling feeling). SKIN: Skin is warm and dry. --17:22 Ramirez Parikh R.N. 18:26 01/02/17. SKIN: ( Under left and right breast incisions, CDI bilat, no drainage noted). --18:26 Ramirez Parikh R.N. NURSING PROGRESS NOTES 17:01/02/17. The plan of care for this patient has been created. Cold pack applied. Neuro-vascular extremity check. Patient gowned. Reassurance given. Two patient identifiers checked. Call light placed in reach. Side rails up x 2. Bed placed in lowest position. Brakes of bed on. --17:22 Ramirez Parikh R.N. 17:01/02/17. Patient ready for evaluation- chart flagged and notification provided. --17:23 Ramirez Parikh R.N. 18:26 01/02/17. --18:26 Ramirez Parikh R.N. 18:25 01/02/17. BP: 114/72. HR: 81. RR: 14. O2 saturation: 100% on room air. Temp: 98.2 F (oral). --18:26 Ramirez Parikh R.N. 18:23. Patient ID band checked for patient name and birthdate: patient confirmed. Blood samples drawn from the right antecubital space with syringe and 23g butterfly by tech per protocol ; labeled in presence of the patient and sent to lab: rainbow set. --18:34 Aida Ferraro ER Tech1 EKG time: (1821). EKG was performed by a tech and shown to the SYSTEMS INTEGRATOR. --18:35 Aida Ferraro, ER Tech1 Care transferred and report received (received report from Ramirez SINGH, assumed care of pt). --19:07 Charity Rinaldi R.N. DISPOSITION / DISCHARGE 19:17 01/02/17. Condition at departure: improved. The goals identified in the patient's plan of care were met. No learning barriers present. Discharge instructions provided and reviewed with the patient. Reviewed warnings. Reviewed medication(s). Treatments reviewed. Patient verbalized understanding. Written instructions provided in Hong Konger. The patient was discharged by the nurse practitioner. She was discharged home and accompanied by family. She left the Emergency Department ambulatory and via private vehicle. Family member driving. FALL RISK ASSESSMENT: Fall risk assessment completed. No fall risk identified. --19:17 Ramirez Parikh R.N. 19:17 01/02/17. BP: 114/83. HR: 80. RR: 16. O2 saturation: 100% on room air. Temp: 97.8 F (oral). Pain level now: 08/21. --19:17 Ramirez Parikh R.N. 19:17 01/02/17. Departure time: 19:Jan 02 2017. --19:17 Ramirez Parikh R.N. Locked/Released at 01/02/2017 19:19 by Ramirez Parikh R.N.
--- NOTE | 2017-01-02 19:14 | ED ORDER SUMMARY ---
..... Patient: STAR HIDALGO OrderSheet [facility] VisitID: [id number] [place] [address] 31y, F Registration Date/Time: 01/02/2017 ORDER SHEET Weight: 57.6 kg (stated) Allergies: No Known Drug Allergy GENERAL ORDERS: UA-Culture if indicated Urgent (17:26 01/02/2017 JBoardley R.N. per protocol) (Ack 17:28 AVINASHoerner) (17:57 ALawrence ER Tech1) Urine Urgent (17:26 01/02/2017 JBoardley R.N. per protocol) (Ack 17:28 Polo) (17:57 ALawrence ER Tech1) Cardiac Panel Stat (18:05 01/02/2017 SThom A.R.N.P.) (Ack 18:07 Polo) (18:26 ALawrence ER Tech1) EKG - ER Stat (18:05 01/02/2017 SThom A.R.N.P.) (18:26 ALawrence ER Tech1) MEDICATION ORDERS: IV FLUIDS: ORDER SHEET NOTES: [Electronically signed by Ramirez Parikh R.N. (19:19 01/02/2017)] [Electronically signed by Rebecca Orona A.R.N.P. (20:45 01/02/2017)] [Electronically locked/signed by Ramirez Parikh R.N. (19:19 01/02/2017)]
--- NOTE | 2017-01-02 19:14 | ED NURSING NOTES ---
Clinical Report - Nurses [place] [address] [place] [address] 01/02/2017 16:52 Patient: STAR HIDALGO TRIAGE Triage time 17:Jan 02 2017. Acuity: LEVEL 4. Chief Complaint: LEFT UPPER EXTREMITY TINGLING. 17:01/02/17. 17:01/02/17. Alert. No acute distress. SEPSIS SCREEN: Sepsis Screen. Negative (no infection suspected/documented). SHAYLEE COMA SCORE: Shaylee Coma Scale: 15- eyes open spontaneously (4); best verbal response- oriented x 4 (5); best motor response- obeys commands (6). --17:24 Ramirez Parikh R.N. 17:01/02/17. BP: 129/92. HR: 98. RR: 18. O2 saturation: 100% on room air. Temp: 97.8 F (oral). Pain level now: 10/19. --17:24 Ramirez Parikh R.N. Weight: 57.6 kg stated. Height/Length: 63 inches Per Patient. BMI: 22.5. --17:21 Ramirez Parikh R.N. Medications Xanax Oral. --17:20 Ramirez Parikh R.N. Beta Liliam. --17:20 Ramirez Parikh R.N. OxyCODONE HCl Oral. --17:21 Ramirez Parikh R.N. Medication/allergy information source: the patient. --17:24 Ramirez Parikh R.N. Allergies No Known Drug Allergy. --17:21 Ramirez Pairkh R.N. History Arrived by private vehicle. Primary physician (Kayley). 17:01/02/17. No injury occurred. This occurred (30 min ago). 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 PAST MEDICAL HX: Tetanus status: up-to-date. Immunizations: up-to-date. SOCIAL HX: Never smoker. No alcohol use or drug use. No infectious disease exposure. ABUSE ASSESSMENT: No report of abuse. FALL RISK ASSESSMENT: Fall risk assessment completed. No fall risk identified. NUTRITIONAL RISK ASSESSMENT: The nutritional risk assessment revealed no deficiencies. FUNCTIONAL ASSESSMENT: Functional assessment: no impairments noted. LEARNING NEEDS ASSESSMENT: The learning needs assessment revealed no barriers. SKIN INTEGRITY ASSESSMENT: Skin integrity risk assessment completed. No skin integrity risk identified. --17:24 Ramirez Parikh R.N. PAST MEDICAL HX: Last normal menstrual period now. --17:24 Ramirez Parikh R.N. PROBLEMS: Asthma. --17:21 Ramirez Parikh R.N. ADDITIONAL SURGERIES: Breast Augmentation. --17:21 Ramirez Parikh R.N. Assessment 17:01/02/17. --17:24 Ramirez Parikh R.N. Interventions 17:01/02/17. 17:01/02/17. ID and allergy band on patient. To treatment room. --17:24 Ramirez Parikh R.N. PHYSICAL ASSESSMENT 17:01/02/17. Ambulatory to room. GENERAL / NEURO / PSYCH: Oriented X 4. Alert. Appears in no acute distress. EXTREMITIES: Extremities exhibit normal ROM. Neuro-vascular status intact to the extremity. No upper extremity edema. Skin is non-tender on the extremities. Left hand: (tingling feeling). SKIN: Skin is warm and dry. --17:22 Ramirez Parikh R.N. 18:26 01/02/17. SKIN: ( Under left and right breast incisions, CDI bilat, no drainage noted). --18:26 Ramirez Parikh R.N. NURSING PROGRESS NOTES 17:01/02/17. The plan of care for this patient has been created. Cold pack applied. Neuro-vascular extremity check. Patient gowned. Reassurance given. Two patient identifiers checked. Call light placed in reach. Side rails up x 2. Bed placed in lowest position. Brakes of bed on. --17:22 Ramirez Parikh R.N. 17:01/02/17. Patient ready for evaluation- chart flagged and notification provided. --17:23 Ramirez Parikh R.N. 18:26 01/02/17. --18:26 Ramirez Parikh R.N. 18:25 01/02/17. BP: 114/72. HR: 81. RR: 14. O2 saturation: 100% on room air. Temp: 98.2 F (oral). --18:26 Ramirez Parikh R.N. 18:23. Patient ID band checked for patient name and birthdate: patient confirmed. Blood samples drawn from the right antecubital space with syringe and 23g butterfly by tech per protocol ; labeled in presence of the patient and sent to lab: rainbow set. --18:34 Aida Ferraro ER Tech1 EKG time: (1821). EKG was performed by a tech and shown to the PROGRESSIVE ASSEMBLER AND FITTER. --18:35 Aida Ferraro, ER Tech1 Care transferred and report received (received report from Ramirez SINGH, assumed care of pt). --19:07 Charity Rinaldi R.N. DISPOSITION / DISCHARGE 19:17 01/02/17. Condition at departure: improved. The goals identified in the patient's plan of care were met. No learning barriers present. Discharge instructions provided and reviewed with the patient. Reviewed warnings. Reviewed medication(s). Treatments reviewed. Patient verbalized understanding. Written instructions provided in Bangladeshi. The patient was discharged by the nurse practitioner. She was discharged home and accompanied by family. She left the Emergency Department ambulatory and via private vehicle. Family member driving. FALL RISK ASSESSMENT: Fall risk assessment completed. No fall risk identified. --19:17 Ramirez Parikh R.N. 19:17 01/02/17. BP: 114/83. HR: 80. RR: 16. O2 saturation: 100% on room air. Temp: 97.8 F (oral). Pain level now: 08/21. --19:17 Ramirez Parikh R.N. 19:17 01/02/17. Departure time: 19:Jan 02 2017. --19:17 Ramirez Parikh R.N. Locked/Released at 01/02/2017 19:19 by Ramirez Parikh R.N.
--- NOTE | 2017-01-02 19:14 | ED CLINICAL REPORT ---
Clinical Report - Physicians/Mid Levels [facility] [address] [place] [address] 01/02/2017 16:52 Patient: STAR HIDALGO Time Seen: 1750 PM. Arrived- By private vehicle. Historian- patient. HISTORY OF PRESENT ILLNESS Chief Complaint: PALPITATIONS. This started 3 days ago. It has been intermittent. Modifying factors- (betablocker has helped). It is described as a fast heart beat. No chest pain or difficulty breathing. She has had tingling in hands (today L hand numb/tingly). ( Hand tingling is mild-and what brought her to ER. No CP or palp at this time. PCP told her to be alert to L arm tingling). Similar symptoms previously: Recent medical care: The patient was seen recently at this facility in the emergency department and a clinic. ( ER here 3 days ago, then PCP followup. Taking 25mg metop qd). REVIEW OF SYSTEMS No fever, chills, orthopnea, headache or nausea. No abdominal pain, skin rash or vomiting. PAST HISTORY See nurses notes. Heart rhythm problems. Anxiety problems. Episodic narrow complex tachycardia dx 12/30. On metoprolol 25mg qd, Recent breast augmentation. No history of atrial fibrillation. Surgeries: Breast augmentation. SOCIAL HISTORY Never smoker. No alcohol use or drug use. ADDITIONAL NOTES The nursing notes have been reviewed. PHYSICAL EXAM Vital Signs: 01/02/2017 19:17 BP: 114/83. HR: 80. RR: 16. O2 saturation: 100%. Temp: 97.8 F. Pain level now: 08/21. 01/02/2017 17:19 BP: 129/92. HR: 98. RR: 18. O2 saturation: 100%. Temp: 97.8 F. Pain level now: 10/19. Have been reviewed and appear to be correct. Appearance: Alert. Oriented X3. No acute distress. Anxious. Eyes: Pupils equal, round and reactive to light. Eyes normal inspection. Neck: Normal inspection. Neck supple. CVS: Normal heart rate and rhythm. Heart sounds normal. Respiratory: No respiratory distress. Breath sounds normal. Skin: Skin warm and dry. Normal skin color. No rash. Normal skin turgor. Extremities: Extremities exhibit normal ROM. Neuro: Oriented X 3. LABS, X-RAYS, AND EKG EKG: No acute process. Normal EKG. Normal EKG. Laboratory Tests: Laboratory tests have been ordered, with results reviewed and considered in the medical decision making process. UA-Culture if indicated: (HARRY: 01/02/2017 17:30) ( [facility] 01/02/2017 18:06) Final results Test Result Flag Units (Reference) URINE COLOR STRAW URINE APPEARANCE CLEAR URINE GLUCOSE NEGATIVE (NEGATIVE) URINE BILIRUBIN NEGATIVE (NEGATIVE) URINE KETONE NEGATIVE (NEGATIVE) URINE SPECIFIC GRAVITY <= 1.005 L (1.010-1.030) URINE PH 7.0 (5.0-8.0) URINE PROTEIN NEGATIVE (NEGATIVE) URINE UROBILINOGEN 0.2 EU/dL (0.2-1.0) URINE NITRITE NEGATIVE (NEGATIVE) URINE BLOOD 3+ (NEGATIVE) URINE LEUK ESTERASE NEGATIVE (NEGATIVE) URINE RBC 0-1 rbc/hpf (0-1) URINE WBC 0-1 wbc/hpf (0-1) URINE EPITHELIAL CELLS 1-3 EPI/hpf (0-5) URINE BACTERIA NONE SEEN (NONE SEEN) URINE COMMENT CULT NOT INDICATED URINE CULTURES ARE SET-UP BASED ON THE FOLLOWING CRITERIA:POSITIVE NITRITEPOSITIVE LEUKOCYTE ESTERASEGREATER THAN 10 WHITE BLOOD CELLSMODERATE (2+) OR GREATER BACTERIA Urine: (HARRY: 01/02/2017 17:30) ( [facility] 01/02/2017 17:43) Final results Test Result Flag Units (Reference) URINE NEGATIVE CBC w Diff: (HARRY: 01/02/2017 18:23) ( [facility] 01/02/2017 18:40) Final results Test Result Flag Units (Reference) WHITE BLOOD COUNT 6.8 K/uL (4.5-11.5) RED BLOOD COUNT 4.26 M/uL (4.00-5.20) HEMOGLOBIN 12.9 gm/dL (12.0-16.0) HEMATOCRIT 38.3 % (36.0-46.0) MEAN CELL VOLUME 90 fL (80-100) MEAN CORPUSCULAR HGB 30 pg (26-34) MEAN CORPUSCULAR HGB CONC 34 g/dL (31-37) RED CELL DISTRIBUTION WIDTH 12.3 % (11.6-14.8) PLATELET COUNT 335 K/uL (150-400) NEUTROPHIL % 62.8 % (50-75) LYMPH % 26.2 % (25-40) MONO % 8.5 % (3-14) EOSINOPHIL % 1.9 % (0-4) BASOPHIL % 0.6 % (0-2) CHEM 13 PANEL: (HARRY: 01/02/2017 18:23) ( MsgRcvd 01/02/2017 19:02) Final results Test Result Flag Units (Reference) GLUCOSE 111 H mg/dL (70-110) BUN 10 mg/dL (7-18) CREATININE 0.7 mg/dL (0.6-1.3) Estimated GFR >60 mL/min Estimated GFR- >60 mL/min Note: Persistent reduction over 3 months in eGFR<60 mL/min/1.73 m2 defines CKD. Patients with eGFR values>=60 mL/min/1.73 m2 may also have CKD if evidence ofpersistent proteinuria. Additional information may be foundat www.kidney.org. SODIUM 141 mmol/L (136-145) POTASSIUM 3.7 mmol/L (3.5-5.1) CHLORIDE 103 mmol/L (98-107) CARBON DIOXIDE 29 mmol/L (21-32) CALCIUM 9.1 mg/dL (8.5-10.1) TOTAL PROTEIN 8.1 g/dL (6.4-8.2) ALBUMIN 4.0 g/dL (3.3-5.0) BILIRUBIN, TOTAL 0.4 mg/dL (0.0-1.0) ALKALINE PHOSPHATASE 78 U/L (46-116) AST (SGOT) 12 L U/L (15-37) ALT (SGPT) 31 U/L (12-78) CPK 40 U/L (24-260) MAGNESIUM 2.1 mg/dL (1.8-2.4) TROPONIN I <0.05 L ng/mL (0.00-1.5) TROPONIN REFERENCE RANGE:<0.1 NEGATIVE0.1-1.5 INDETERMINANT>1.5 POSITIVE . Note - Tests: (rev'd w/ ERMD). PROGRESS AND PROCEDURES Course of Care: pt is much reassured by EKG and labs She has cardio consult scheduled Reviewed betablocker in more detail and did a bit more education Reassuring to go home. Has a Fitbit so pulse tracker avail. No severe tachycardia at home-120 when doing stairs, etc. Patient is stable. Normal sinus rhythm. Patient counseled in person regarding the patient's condition, test results, normal exam, diagnosis and need for additional testing and follow-up. Old ED records reviewed. Disposition: Discharged. Condition: stable. CLINICAL IMPRESSION Anxiety reaction. (Paresthesia of L hand/arm). (Tachycardia). INSTRUCTIONS Avoid stimulants (such as cigarettes, coffee, cold medicines, sinus medicines, street drugs). (Labs are all normal. EKG normal. Your hand numbness may be a pinched nerve, or related to swelling postop-so just monitor Metoprolol: 1/2 tab twice daily -check pulse=hold if 60 or less. If you are continually running 140 (not just w/ activity) then come in for check. Ask your PCP to order the echo if possible.). Warnings: GENERAL WARNINGS: Return or contact your physician immediately if your condition worsens or changes unexpectedly, if not improving as expected, or if other problems arise. Your Current Medications: STOP TAKING THE FOLLOWING MEDICATIONS: Beta Liliam*. CONTINUE TAKING THE FOLLOWING MEDICATIONS: OxyCODONE HCl Oral. Xanax Oral. Prescription Medications: Metoprolol 25 mg. Dispense thirty (30). No refills. (1/2 tablet twice daily) Follow-up: Follow up with a it manager- as recommended by your primary care physician. Follow up with your doctor as scheduled. Understanding of the discharge instructions verbalized by patient. (Electronically signed by Rebecca Orona A.R.N.P. 01/02/2017 20:45)
--- NOTE | 2017-01-02 19:14 | ED ORDER SUMMARY ---
..... Patient: STAR HIDALGO OrderSheet [facility] VisitID: [id number] [place] [address] 31y, F Registration Date/Time: 01/02/2017 ORDER SHEET Weight: 57.6 kg (stated) Allergies: No Known Drug Allergy GENERAL ORDERS: UA-Culture if indicated Urgent (17:26 01/02/2017 JBoardley R.N. per protocol) (Ack 17:28 AVINASHoerner) (17:57 ALawrence ER Tech1) Urine Urgent (17:26 01/02/2017 JBoardley R.N. per protocol) (Ack 17:28 Polo) (17:57 ALawrence ER Tech1) Cardiac Panel Stat (18:05 01/02/2017 SThom A.R.N.P.) (Ack 18:07 Polo) (18:26 ALawrence ER Tech1) EKG - ER Stat (18:05 01/02/2017 SThom A.R.N.P.) (18:26 ALawrence ER Tech1) MEDICATION ORDERS: IV FLUIDS: ORDER SHEET NOTES: [Electronically signed by Ramirez Parikh R.N. (19:19 01/02/2017)] [Electronically signed by Rebecca Orona A.R.N.P. (20:45 01/02/2017)] [Electronically locked/signed by Ramirez Parikh R.N. (19:19 01/02/2017)]
--- NOTE | 2017-01-02 20:46 | ED MED RECONCILIATION SUMMARY ---
Patient: STAR HIDALGO Medication Reconciliation Report [facility] VisitID: [id number] [address] [place] [address] 31y, F Registration Date/Time: 01/02/2017 Weight: 57.6 kg Height/Length: 63 in. BMI: 22.5 ALLERGIES: No Known Drug Allergy The patient's Home Medications are listed below: STOP TAKING THE FOLLOWING MEDICATIONS: Beta Liliam CONTINUE TAKING THE FOLLOWING MEDICATIONS: OxyCODONE HCl Oral Xanax Oral The source(s) of the original Home Medication information: patient The following Medications were given to the patient in the Emergency Department: None. The following Medications were prescribed to the patient: Metoprolol 25 mg. Dispense thirty (30). No refills.(1/2 tablet twice daily) -- Rebecca Orona A.R.N.P.
--- NOTE | 2017-01-02 20:46 | ED MED RECONCILIATION SUMMARY ---
Patient: STAR HIDALGO Medication Reconciliation Report [facility] VisitID: [id number] [address] [place] [address] 31y, F Registration Date/Time: 01/02/2017 Weight: 57.6 kg Height/Length: 63 in. BMI: 22.5 ALLERGIES: No Known Drug Allergy The patient's Home Medications are listed below: STOP TAKING THE FOLLOWING MEDICATIONS: Beta Liliam CONTINUE TAKING THE FOLLOWING MEDICATIONS: OxyCODONE HCl Oral Xanax Oral The source(s) of the original Home Medication information: patient The following Medications were given to the patient in the Emergency Department: None. The following Medications were prescribed to the patient: Metoprolol 25 mg. Dispense thirty (30). No refills.(1/2 tablet twice daily) -- Rebecca Orona A.R.N.P.
--- NOTE | 2017-01-02 20:46 | ED MAR SUMMARY ---
..... Medication Administration Record [facility] [address] [place] [id number] Patient: STAR HIDALGO Visit ID: [id number] 31y, F Weight: 57.6 kg Height/Length: 63 in BMI: 22.5 ALLERGIES: No Known Drug Allergy
--- NOTE | 2017-01-02 20:46 | ED DISCHARGE INSTRUCTIONS ---
Patient: STAR HIDALGO General Instructions [facility] VisitID: [id number] [place] [address] 31y, F Registration Date/Time: 01/02/2017 Anxiety reaction. (Paresthesia of L hand/arm). (Tachycardia). INSTRUCTIONS Avoid stimulants (such as cigarettes, coffee, cold medicines, sinus medicines, street drugs). (Labs are all normal. EKG normal. Your hand numbness may be a pinched nerve, or related to swelling postop-so just monitor Metoprolol: 1/2 tab twice daily -check pulse=hold if 60 or less. If you are continually running 140 (not just w/ activity) then come in for check. Ask your PCP to order the echo if possible.). Warnings: GENERAL WARNINGS: Return or contact your physician immediately if your condition worsens or changes unexpectedly, if not improving as expected, or if other problems arise. Your Current Medications: STOP TAKING THE FOLLOWING MEDICATIONS: Beta Liliam*. CONTINUE TAKING THE FOLLOWING MEDICATIONS: OxyCODONE HCl Oral. Xanax Oral. Prescription Medications: Metoprolol 25 mg. Dispense thirty (30). No refills. (1/2 tablet twice daily) Follow-up: Follow up with a drywall contractor- as recommended by your primary care physician. Follow up with your doctor as scheduled. Understanding of the discharge instructions verbalized by patient. ADDITIONAL INFORMATION Stress Reaction Anxiety is the feeling we all get when we think something bad might happen. It is a normal response to stress and usually causes only a mild reaction. When anxiety becomes more severe, emotions may interfere with daily life. In some cases, you may not even be aware of what it is youre anxious about! During an anxiety reaction, you may feel like you are helpless, nervous, depressed or irritable. Your body may show signs of anxiety in many ways. You may experience dry mouth, shakiness, dizziness, weakness, trouble breathing, chest pressure, headache, nausea, diarrhea, tiredness, inability to sleep or sexual problems. Home Care: 1) Try to locate the sources of stress in your life. They may not be obvious! These may include: -- Daily hassles of life which pile up (traffic jams, missed appointments, car troubles, etc.) -- Major life changes, both good (new baby, job promotion) and bad (loss of job, loss of loved one) -- Overload: feeling that you have too many responsibilities and can't take care of all of them at once -- Feeling helpless, feeling that your problems are beyond what youre able to solve 2) Notice how your body reacts to stress. Learn to listen to your body signals. This will help you take action before the stress becomes severe. 3) When you can, do something about the source of your stress. (Avoid hassles, limit the amount of change that happens in your life at one time and take a break when you feel overloaded). 4) Unfortunately, many stressful situations cannot be avoided. It is necessary to learn HOW TO MANAGE STRESS better. There are many proven methods that will reduce your anxiety. These include simple things like exercise, good nutrition and adequate rest. Also, there are certain techniques that are helpful: relaxation and breathing exercises, visualization, biofeedback and meditation. For more information about this, consult your doctor or go to a local bookstore and review the many books and tapes available on this subject. Follow Up If you feel that your anxiety is not responding to self-help measures, contact your doctor or make an appointment with a counselor. Get Prompt Medical Attention if any of the following occur: -- Your symptoms get worse -- Chest pain or trouble breathing -- Severe headache not relieved by rest and mild pain reliever -- Rapid or irregular heartbeat, fainting You have been given the following additional information: Anxiety Reaction (Electronically signed by Rebecca Orona [email or web address] 01/02/2017 20:45)
--- NOTE | 2017-01-02 20:46 | ED MAR SUMMARY ---
..... Medication Administration Record [facility] [address] [place], [place] [id number] Patient: STAR HIDALGO Visit ID: [id number] 31y, F Weight: 57.6 kg Height/Length: 63 in BMI: 22.5 ALLERGIES: No Known Drug Allergy
== END 2017-01-02 19:17 | disposition home or self-care (01) ==
LOC: ED SRH 16:53
DX: F41.9 Anxiety disorder, unspecified (principal); R20.2 Paresthesia of skin; R00.0 Tachycardia, unspecified
CPT/HCPCS: 90004; 90074; 90100; 90616; 92610; 92720; 93070; 95059

== ENCOUNTER 2017-01-10 12:35 | Outpatient (CLI) | payer OTHER ==
--- NOTE | 2017-01-18 07:24 | DIAGNOSTIC IMAGING REPORT ---
REFERRING PHYSICIAN/PROVIDER: FRANTZ Todd [employer] [employer]: Mic Petty MD PROCEDURE: M-mode 2D echocardiography with spectral and color flow Doppler TECHNICAL QUALITY: Fair INDICATION: INTERMITTENT PALPITATIONS RHYTHM DURING PROCEDURE: Normal sinus rhythm INTERPRETATIONS: LEFT VENTRICLE: The left ventricle is normal in size and function. The estimated ejection fraction is 65%. There is no evidence of left ventricular hypertrophy noted. RIGHT VENTRICLE: The right ventricle is normal in size and systolic function ATRIA: Both atria appear normal with normal size. MITRAL VALVE: The mitral valve leaflets appear normal. There is no evidence of mitral annular calcification. There is no evidence of mitral stenosis or mitral regurgitation noted. AORTIC VALVE: Aortic valve is trileaflet. There is no evidence of aortic stenosis or aortic regurgitation noted. TRICUSPID VALVE: Tricuspid valve leaflets are thin and pliable. There is trace tricuspid regurgitation noted. The estimated right ventricular systolic pressure was 10 mmHg. PULMONIC VALVE: The pulmonic valve is not well visualized. There is trace pulmonic regurgitation noted. GREAT VESSELS: The great vessels appear normal in size. The ascending aorta measures 2.4 cm in diameter. PERICARDIUM: Pericardium appears normal. There is no pericardial or pleural effusion noted. IMPRESSION: 1. Normal biventricular size and systolic function (LVEF = 65%) 2. Normal biatrial size 3. No significant valvular abnormalities 4. Normal estimated right ventricular systolic pressure
== END 2017-01-10 23:00 | disposition home or self-care (01) ==
LOC: US SRH 12:35
DX: R00.2 Palpitations (principal)